=== PATIENT | female | born 1975 | race Hispanic/Latino ===

== ENCOUNTER 2019-04-01 17:49 | Emergency (ER) | payer SELFPAY ==
--- NOTE | 2019-04-01 19:20 | RAD REPORT ---
EXAM DESCRIPTION: RAD - Knee Right 3 View - 04/01/2019 7:14 pm CLINICAL HISTORY: PAIN Pain and swelling COMPARISON: No comparisons FINDINGS: Mild medial compartment space narrowing is present compatible with mild osteoarthritis. Mo derate suprapatellar joint effusion is present. An acute fracture is not demonstrated. IMPRESSION: Moderate joint effusion.
[2019-04-01] MEDS ORDERED: BUPIVACAINE 0.5% PF 10 ML VIAL ONE (20:48)
[2019-04-01] MEDS ORDERED: DEXAMETHASONE 10 MG/ML VIAL ONE (21:15)
[2019-04-01] MEDS ORDERED: FENTANYL CITR 100 MCG/2 ML ONE (21:16)
[2019-04-01] MEDS ORDERED: KETOROLAC 30 MG/ML INJ ONE (21:16)
[2019-04-01 21:17] LABS: Absolute Lymphocytes (CBC) 1.4 K/uL (0.7-4.9); Absolute Monocytes 1.1 K/uL (0.1-1.3); Absolute Neutrophil 10.5 K/uL (1.8-8.0); Basophils % 0.3 % (0-1.3); Eosinophils % 0.4 % (0-4.4); Monocytes % 8.5 % (3.3-12.3); RBC Red Blood Cell Count 4.88 M/uL (3.86-4.86)
[2019-04-01 21:40] LABS: BUN Blood Urea Nitrogen 6 mg/dL (7-18); Bicarbonate 23 mmol/L (21-32); Glucose Level 111 mg/dL (74-106); Potassium 3.5 mmol/L (3.5-5.1); Sodium Level 137 mmol/L (136-145)
[2019-04-01 23:30] LABS: Body Fluid Source SYNOVIAL
[2019-04-01 23:31] LABS: Appearance TURBID (CLEAR); Body Fluid WBC 29411 /mm^3; Color of fluid Pink (COLORLESS)
--- NOTE | 2019-04-02 00:35 | ER ---
Nurse's Notes [facility] Name: Sarai Thomas Age: 44 yrs Sex: Female : 1975 Arrival Date: 04/01/2019 Time: 18:04 Bed 2 Private MD: Diagnosis: Effusion, right knee;Pain in right knee Presentation: 04/01 18:04 Presenting complaint: Patient states: c/o right knee pain yesterday and today woke up sv with right knee swelling, denies injury or fall. Transition of care: patient was not received from another setting of care. Onset of symptoms was March 31, 2019. Initial Sepsis Screen: Does the patient meet any 2 criteria? No. Patient's initial sepsis screen is negative. Does the patient have a suspected source of infection? No. Patient's initial sepsis screen is negative. Care prior to arrival: None. 18:04 Method Of Arrival: Wheelchair sv 18:04 Acuity: MARISEL 2 sv 19:54 Risk Assessment: Do you want to hurt yourself or someone else? Patient reports no tl2 desire to harm self or others. Triage Assessment: 18:05 General: Appears in no apparent distress. uncomfortable, Behavior is cooperative, sv appropriate for age, anxious. Pain: Complains of pain in right knee. Neuro: Level of Consciousness is awake, alert, obeys commands, Oriented to person, place, time, situation. Respiratory: Respiratory effort is even, unlabored, Respiratory pattern is regular, symmetrical. Historical: - Allergies: 18:05 No Known Allergies; sv - PMHx: 18:05 None; sv - Immunization history:: Adult Immunizations up to date. - Social history:: Smoking status: Patient/guardian denies using tobacco. - Ebola Screening: : No symptoms or risks identified at this time. Screenin:50 Abuse screen: Denies threats or abuse. Nutritional screening: No deficits noted. tl2 Tuberculosis screening: No symptoms or risk factors identified. Fall Risk Gait- Impaired (20 pts.). Assessment: 19:50 General: Appears in no apparent distress. uncomfortable, Behavior is calm, cooperative, tl2 appropriate for age. Pain: Complains of pain in right knee Pain does not radiate. Pain currently is 9 out of 10 on a pain scale. Quality of pain is described as stinging. Neuro: Level of Consciousness is awake, alert, obeys commands, Oriented to person, place, time, situation. Cardiovascular: Denies chest pain. Respiratory: Airway is patent Respiratory effort is even, unlabored, Respiratory pattern is regular, symmetrical. GI: No signs and/or symptoms were reported involving the gastrointestinal system. Derm: Skin is pink, warm \T\ dry. Musculoskeletal: Circulation, motion, and sensation intact. Range of motion: limited in right knee Swelling present in right knee Denies injury to right knee. 22:00 Reassessment: Patient appears in no apparent distress at this time. Patient and/or tl2 family updated on plan of care and expected duration. Pain level reassessed. Patient is alert, oriented x 3, equal unlabored respirations, skin warm/dry/pink. Dr. Bucio at bedside to perform needle aspiration of knee joint. 22:21 Reassessment: 70 mL of synovial fluid removed from left knee, samples sent to lab. tl2 04/02 00:00 Reassessment: Patient appears in no apparent distress at this time. Patient and/or tl2 family updated on plan of care and expected duration. Pain level reassessed. Patient is alert, oriented x 3, equal unlabored respirations, skin warm/dry/pink. 01:02 Reassessment: Patient appears in no apparent distress at this time. Patient and/or tl2 family updated on plan of care and expected duration. Pain level reassessed. Patient is alert, oriented x 3, equal unlabored respirations, skin warm/dry/pink. pt verbalized understanding of discharge instructions, need for follow up and prescription usage. Vital Signs: 04/01 18:05 BP 164 / 98; Pulse 101; Resp 20; Temp 97.2; Pulse Ox 99% ; Weight 77.11 kg; Height 5 sv ft. 7 in. (170.18 cm); Pain 10/10; 19:50 BP 153 / 88; Pulse 101; Resp 20; Pulse Ox 99% on R/A; Pain 10/10; tl2 21:15 BP 136 / 92; Pulse 108; Resp 18; Pulse Ox 96% on R/A; tl2 04/02 00:30 BP 136 / 84; Pulse 111; Resp 18; Temp 98.1(O); Pulse Ox 97% on R/A; tl2 04/01 18:05 Body Mass Index 26.63 (77.11 kg, 170.18 cm) ED Course: 04/01 18:04 Patient arrived in ED. sv 18:05 Triage completed. sv 18:05 Arm band placed on. sv 19:14 Knee Right 3 View XRAY In Process Unspecified. EDMS 19:49 Jg Bucio MD is Attending Physician. wa 19:50 Patient has correct armband on for positive identification. Bed in low position. Call tl2 light in reach. Side rails up X 1. Adult w/ patient. 20:55 Inserted saline lock: 22 gauge in right antecubital area, using aseptic technique. tl2 Blood collected. 22:18 Bibiana Bucio, TALIB is Primary Nurse. tl2 23:00 BMP Sent. ea 23:00 CBC with Diff Sent. ea 04/02 00:10 Quique Slaughter PA is PHCP. cp 00:33 Ousmane Pérez MD is Referral Physician. cp 01:02 No provider procedures requiring assistance completed. IV discontinued, intact, tl2 bleeding controlled, No redness/swelling at site. Pressure dressing applied. Administered Medications: 04/01 21:10 Drug: TORadol 30 mg Route: IVP; Site: right antecubital; tl2 22:00 Follow up: Response: No adverse reaction; Pain is decreased tl2 21:10 Drug: Decadron - Dexamethasone 10 mg Route: IVP; Site: right antecubital; tl2 22:00 Follow up: Response: No adverse reaction; Pain is decreased tl2 21:16 Drug: fentaNYL (PF) 50 mcg Route: IVP; Site: right antecubital; tl2 22:00 Follow up: Response: No adverse reaction; Pain is decreased tl2 04/02 00:55 Drug: [place] (7.5 mg-325 mg) 1 tabs Route: PO; tl2 01:00 Follow up: Response: No adverse reaction; Medication administered at discharge. tl2 Outcome: 00:34 Discharge ordered by . cp 01:02 Discharged to home via wheelchair, with crutches, with family. tl2 01:02 Condition: stable 01:02 Discharge instructions given to patient, Instructed on discharge instructions, follow up and referral plans. medication usage, Demonstrated understanding of instructions, follow-up care, medications, Prescriptions given X 2. 01:03 Patient left the ED. tl2 Signatures: Dispatcher [employer] Chitra Morales RN RN sv Quique Slaughter PA PA cp Knox, Taylor, RN RN tl2 Natalie Alcantara RN RN ea Appiah, William, MD MD wa Corrections: (The following items were deleted from the chart) 04/01 18:06 18:04 Acuity: MARISEL 3 sv sv
--- NOTE | 2019-04-02 00:35 | EDPHYS ---
Physician Documentation [facility] Name: Sarai Thomas Age: 44 yrs Sex: Female : 1975 Arrival Date: 04/01/2019 Time: 18:04 Bed 2 Private MD: ED Physician Jg Bucio HPI: 04/01 22:16 This 44 yrs old Female presents to ER via Wheelchair with complaints of Knee wa Pain. 22:16 The patient presents with pain, that is acute, swelling, tenderness. The complaints wa affect the right knee. Context: The problem was sustained at home, resulted from an unknown cause, the patient can partially bear weight, the patient is able to ambulate, with moderate difficulty, Problem is a result from a previous injury: many years ago had R knee injury. retained fluid that was drained. that was 20 yrs ago. this pain present x 2 days. denies knew traumatic event. Onset: The symptoms/episode began/occurred 2 day(s) ago. Modifying factors: The symptoms are alleviated by nothing. the symptoms are aggravated by movement, weight bearing, bending knee. Associated signs and symptoms: Pertinent positives: swelling, of the right knee. Treatment prior to arrival includes: no previous treatment. Severity of symptoms: At their worst the symptoms were moderate, in the emergency department the symptoms are actually worse, moderately. The patient has experienced a previous episode, approximately 20 years ago. The patient has not recently seen a physician. as noted above. denies fever, chills or redness. Historical: - Allergies: 18:05 No Known Allergies; sv - PMHx: 18:05 None; sv - Immunization history:: Adult Immunizations up to date. - Social history:: Smoking status: Patient/guardian denies using tobacco. - Ebola Screening: : No symptoms or risks identified at this time. ROS: 22:19 Constitutional: Negative for fever, chills, and weight loss, Eyes: Negative for injury, wa pain, redness, and discharge, ENT: Negative for injury, pain, and discharge, Neck: Negative for injury, pain, and swelling, Cardiovascular: Negative for chest pain, palpitations, and edema, Respiratory: Negative for shortness of breath, cough, wheezing, and pleuritic chest pain, Abdomen/GI: Negative for abdominal pain, nausea, vomiting, diarrhea, and constipation, Back: Negative for injury and pain, : Negative for injury, bleeding, discharge, and swelling, Skin: Negative for injury, rash, and discoloration, Neuro: Negative for headache, weakness, numbness, tingling, and seizure, Psych: Negative for depression, anxiety, suicide ideation, homicidal ideation, and hallucinations. 22:19 MS/extremity: Positive for pain, swelling, tenderness, of the right knee. Exam: 22:19 Constitutional: This is a well developed, well nourished patient who is awake, alert, wa and in no acute distress. Head/Face: Normocephalic, atraumatic. Eyes: Pupils equal round and reactive to light, extra-ocular motions intact. Lids and lashes normal. Conjunctiva and sclera are non-icteric and not injected. Cornea within normal limits. Periorbital areas with no swelling, redness, or edema. ENT: Nares patent. No nasal discharge, no septal abnormalities noted. Tympanic membranes are normal and external auditory canals are clear. Oropharynx with no redness, swelling, or masses, exudates, or evidence of obstruction, uvula midline. Mucous membranes moist. Neck: Trachea midline, no thyromegaly or masses palpated, and no cervical lymphadenopathy. Supple, full range of motion without nuchal rigidity, or vertebral point tenderness. No Meningismus. Chest/axilla: Normal chest wall appearance and motion. Nontender with no deformity. No lesions are appreciated. Cardiovascular: Regular rate and rhythm with a normal S1 and S2. No gallops, murmurs, or rubs. Normal PMI, no JVD. No pulse deficits. Respiratory: Lungs have equal breath sounds bilaterally, clear to auscultation and percussion. No rales, rhonchi or wheezes noted. No increased work of breathing, no retractions or nasal flaring. Abdomen/GI: Soft, non-tender, with normal bowel sounds. No distension or tympany. No guarding or rebound. No evidence of tenderness throughout. Back: No spinal tenderness. No costovertebral tenderness. Full range of motion. Skin: Warm, dry with normal turgor. Normal color with no rashes, no lesions, and no evidence of cellulitis. Neuro: Awake and alert, GCS 15, oriented to person, place, time, and situation. Cranial nerves II-XII grossly intact. Motor strength 5/5 in all extremities. Sensory grossly intact. Cerebellar exam normal. Normal gait. Psych: Awake, alert, with orientation to person, place and time. Behavior, mood, and affect are within normal limits. 22:19 Musculoskeletal/extremity: Extremities: grossly normal except: noted in the right knee: pain, swelling, tenderness, swelling, tenderness. Vital Signs: 18:05 BP 164 / 98; Pulse 101; Resp 20; Temp 97.2; Pulse Ox 99% ; Weight 77.11 kg; Height 5 sv ft. 7 in. (170.18 cm); Pain 10/10; 19:50 BP 153 / 88; Pulse 101; Resp 20; Pulse Ox 99% on R/A; Pain 10/10; tl2 21:15 BP 136 / 92; Pulse 108; Resp 18; Pulse Ox 96% on R/A; tl2 04/02 00:30 BP 136 / 84; Pulse 111; Resp 18; Temp 98.1(O); Pulse Ox 97% on R/A; tl2 04/01 18:05 Body Mass Index 26.63 (77.11 kg, 170.18 cm) sv Procedures: 04/01 22:23 Joint Treatment: Aspiration of right knee using 18 gauge needle, bupivacaine. Removed wa 70 ml's of cloudy fluid, selina fluid, Specimen sent to lab. Dressed with 4x4s, Patient tolerated well. MDM: 19:49 Patient medically screened. wa 22:20 Differential diagnosis: r/o acute trauma. consider effusion. r/o septic joint. Data wa reviewed: vital signs, nurses notes. 22:21 Test interpretation: by ED physician or midlevel provider: R knee: mild osteoarthritis. wa moderate suprapatellar joint effusion. 22:22 Test interpretation: by ED physician or midlevel provider: cbc consistent for wa leukocytosis. 22:22 Response to treatment: the patient's symptoms have mildly improved after treatment. ED wa course: IV placed. Decadron, Toradol given. R knee arthrocentesis performed. pt tolerated procedure well. 04/02 00:30 Physician consultation: Ousmane Pérez MD was called at 00:25, was contacted at 00:25, regarding patient's condition, and will see patient in office, will see patient in clinic within the week. 04/01 20:34 Order name: CBC with Diff wa 05/13 20:34 Order name: BMP in 04/01 20:35 Order name: CBC with Automated Diff; Complete Time: 21:36 EDMS 04/01 20:35 Order name: Basic Metabolic Panel; Complete Time: 22:21 EDMS 04/01 21:42 Order name: Fluid Cell Count,Body; Complete Time: 00:10 in 04/01 21:42 Order name: Body Fluid Culture in 04/01 18:04 Order name: Knee Right 3 View XRAY; Complete Time: 20:02 sv 04/01 20:23 Order name: IV Start; Complete Time: 20:43 in 04/02 00:24 Order name: Misc. Order: gram stain; Complete Time: 00:37 cp 04/02 00:41 Order name: Body Fluid Crystals; Complete Time: 19:40 EDMS 04/02 00:30 Order name: Crutches; Complete Time: 00:37 cp Administered Medications: 04/01 21:10 Drug: TORadol 30 mg Route: IVP; Site: right antecubital; tl2 22:00 Follow up: Response: No adverse reaction; Pain is decreased tl2 21:10 Drug: Decadron - Dexamethasone 10 mg Route: IVP; Site: right antecubital; tl2 22:00 Follow up: Response: No adverse reaction; Pain is decreased tl2 21:16 Drug: fentaNYL (PF) 50 mcg Route: IVP; Site: right antecubital; tl2 22:00 Follow up: Response: No adverse reaction; Pain is decreased tl2 04/02 00:55 Drug: [place] (7.5 mg-325 mg) 1 tabs Route: PO; tl2 01:00 Follow up: Response: No adverse reaction; Medication administered at discharge. tl2 Disposition: 14:11 Co-signature as Attending Physician, Jg Bucio MD I agree with the assessment and in plan of care. Disposition: 04/02/19 00:34 Discharged to Home. Impression: Effusion, right knee, Pain in right knee. - Condition is Stable. - Discharge Instructions: Knee Effusion, Knee Pain. - Prescriptions for Ultracet 37.5- 325 mg Oral Tablet - take 1 tablet by ORAL route every 8 hours As needed - for up to 5 days; do not exceed 8 tablets per day.; 15 tablet. Diclofenac Sodium 75 mg Oral Tablet, Delayed Release (E.C.) - take 1 tablet by ORAL route 2 times per day; 20 tablet. - Medication Reconciliation Form, Thank You Letter, Antibiotic Education, Prescription Opioid Use form. - Follow up: Ousmane Pérez MD; When: within 1 week; Reason: right knee pain and effusion. - Problem is new. - Symptoms have improved. Signatures: Dispatcher [employer] EDChitra Carver RN RN Quique Slaughter PA PA cp Bibiana Bucio RN RN tl2 FortunatoJg MD MD in Corrections: (The following items were deleted from the chart) 01:03 00:34 04/02/2019 00:34 Discharged to Home. Impression: Effusion, right knee; Pain in tl2 right knee. Condition is Stable. Forms are Medication Reconciliation Form, Thank You Letter, Antibiotic Education, Prescription Opioid Use. Follow up: Dr. Ousmane Pérez; When: within 1 week; Reason: right knee pain and effusion. Problem is new. Symptoms have improved. cp
[2019-04-02] MEDS ORDERED: HYDROCODONE/APAP 7.5/325 MG TAB ONE (00:59)
== END 2019-04-02 01:03 | disposition home or self-care (01) ==
LOC: ER 17:49
PROC: 0S9C3ZZ Drainage of Right Knee Joint, Percutaneous Approach (ICD-10-PCS; principal; 2019-04-01)
DX: M25.461 Effusion, right knee (principal); M25.561 Pain in right knee
CPT/HCPCS: 36415; 80048; 85025; 87070; 89050; 89060; 96374; 96375; 99284; J1100; J3010

== ENCOUNTER 2019-04-03 17:51 | Emergency (ER) | payer SELFPAY ==
--- NOTE | 2019-04-03 18:43 | ER ---
Nurse's Notes [facility] Name: Sarai Thomas Age: 44 yrs Sex: Female : 1975 Arrival Date: 04/03/2019 Time: 17:54 Bed 7 Private MD: Diagnosis: Pain in right knee;Effusion, right knee Presentation: 04/03 18:02 Presenting complaint: Child states: she was here on Monday and she needs more pain tw2 medicine, she cant get a follow up appt until April and she doesn't know if more fluid is in the knee or not. Transition of care: patient was not received from another setting of care. Onset of symptoms was April 03, 2019. Risk Assessment: Do you want to hurt yourself or someone else? Patient reports no desire to harm self or others. Initial Sepsis Screen: Does the patient meet any 2 criteria? No. Patient's initial sepsis screen is negative. Does the patient have a suspected source of infection? No. Patient's initial sepsis screen is negative. Care prior to arrival: None. 18:02 Method Of Arrival: Wheelchair tw2 18:02 Acuity: MARISEL 4 tw2 Triage Assessment: 18:03 General: Appears in no apparent distress. Behavior is calm, cooperative. Pain: tw2 Complains of pain in right knee. Neuro: Level of Consciousness is awake, alert, obeys commands, Oriented to person, place, time, situation. Cardiovascular: Patient's skin is warm and dry. Respiratory: Airway is patent Respiratory effort is even, unlabored, Respiratory pattern is regular, symmetrical. GI: No signs and/or symptoms were reported involving the gastrointestinal system. : No signs and/or symptoms were reported regarding the genitourinary system. Derm: No signs and/or symptoms reported regarding the dermatologic system. Musculoskeletal: Reports pain in right knee. 18:04 Pain:. EENT: No signs and/or symptoms were reported regarding the EENT system. tw2 Musculoskeletal: Swelling present in right knee. 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 tw2 Historical: - Allergies: 18:08 No Known Allergies; tw2 - Home Meds: 18:08 None [Active]; tw2 - PMHx: 18:08 None; tw2 - PSHx: 18:08 None; tw2 - Immunization history:: Adult Immunizations. - Social history:: Smoking status: . - Ebola Screening: : Patient denies travel to an Ebola-affected area in the 21 days before illness onset. Screenin:57 Abuse screen: Denies threats or abuse. Nutritional screening: No deficits noted. tw2 Tuberculosis screening: No symptoms or risk factors identified. Fall Risk None identified. Assessment: 18:06 Reassessment: see triage assessment. tw2 Vital Signs: 18:05 BP 150 / 90; Pulse 94; Resp 17; Temp 97.8(TE); Pulse Ox 99% on R/A; Weight 77.11 kg tw2 (R); Height 5 ft. 7 in. (170.18 cm); Pain 9/10; 18:05 Body Mass Index 26.63 (77.11 kg, 170.18 cm) tw2 ED Course: 17:54 Patient arrived in ED. mr 17:57 Joelle Kirkland RN is Primary Nurse. tw2 17:58 Leonardo Cortez NP is PHCP. pm1 17:58 Cedric Marquez MD is Attending Physician. pm1 17:58 Arm band placed on. tw2 17:58 Bed in low position. Call light in reach. Adult w/ patient. Pulse ox on. NIBP on. tw2 18:03 Triage completed. tw2 18:40 Matthieu wrap to right knee CMS intact post acewrap application. sg 18:50 No provider procedures requiring assistance completed. Patient did not have IV access sg during this emergency room visit. Administered Medications: 18:35 Drug: [place] 10 mg-325 mg 1 tabs Route: PO; tw2 18:50 Follow up: Response: No adverse reaction sg Outcome: 18:43 Discharge ordered by . pm1 18:50 Discharged to home ambulatory, via wheelchair, with family, with friend. sg 18:50 Condition: good 18:50 Discharge instructions given to patient, family, Instructed on discharge instructions, follow up and referral plans. no drinking with medication, no driving heavy equipment, medication usage, safety practices, crutch walking, Demonstrated understanding of instructions, follow-up care, medications, crutch walking, Prescriptions given X 2. 18:51 Patient left the ED. sg Signatures: Job Boyle RN RN Bri Rosenberg mr Leonardo Cortez NP DYNAMOMETER MECHANIC pm1 Kirkland, Joelle, RN RN tw2 Corrections: (The following items were deleted from the chart) 18:05 18:03 Musculoskeletal: Reports pain in left knee tw2 tw2
--- NOTE | 2019-04-03 18:43 | EDPHYS ---
Physician Documentation [facility] Name: Sarai Thomas Age: 44 yrs Sex: Female : 1975 Arrival Date: 04/03/2019 Time: 17:54 Bed 7 Private MD: ED Physician Cedric Marquez HPI: 04/03 18:37 This 44 yrs old Female presents to ER via Wheelchair with complaints of Right pm1 Knee Pain. 18:37 The patient presents with pain, that is acute, swelling. The complaints affect the pm1 right knee. Context: The problem was sustained at home, resulted from an unknown cause, the patient is able to ambulate, Problem is a result from a previous injury: Many years ago. Onset: The symptoms/episode began/occurred 2 day(s) ago. Modifying factors: The symptoms are alleviated by nothing. medications are not helping for pain. the symptoms are aggravated by weight bearing, Patient has not been using the matthieu wrap as directed. Associated signs and symptoms: Pertinent negatives calf tenderness, fever, nausea, numbness, tingling, vomiting, warmth. Treatment prior to arrival includes: prescription medications, Ultram or Ultracet, NSAID, Crutches and matthieu wrap. Severity of symptoms: in the emergency department the symptoms are unchanged. The patient has experienced a previous episode, many years ago. The patient has been recently seen at the [facility] Emergency Department, for similar complaints labs were performed, X-rays were performed, was given a prescription for pain medications, Dx with knee effusion two days ago and had knee drained. Cultures returned negative and patient has appointment with orthopedics on April 24. Patient wants enough medications as a prescription that will last her until April 24. 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 tw2 Historical: - Allergies: 18:08 No Known Allergies; tw2 - Home Meds: 18:08 None [Active]; tw2 - PMHx: 18:08 None; tw2 - PSHx: 18:08 None; tw2 - Immunization history:: Adult Immunizations. - Social history:: Smoking status: . - Ebola Screening: : Patient denies travel to an Ebola-affected area in the 21 days before illness onset. ROS: 18:37 Constitutional: Negative for fever, chills, and weight loss, Eyes: Negative for injury, pm1 pain, redness, and discharge, ENT: Negative for injury, pain, and discharge, Neck: Negative for injury, pain, and swelling, Cardiovascular: Negative for chest pain, palpitations, and edema, Respiratory: Negative for shortness of breath, cough, wheezing, and pleuritic chest pain, Abdomen/GI: Negative for abdominal pain, nausea, vomiting, diarrhea, and constipation, Back: Negative for injury and pain, : Negative for injury, bleeding, discharge, and swelling. 18:37 Skin: Negative for injury, rash, and discoloration, Neuro: Negative for headache, weakness, numbness, tingling, and seizure. 18:37 MS/extremity: Positive for pain, swelling, of the right knee, Negative for decreased range of motion, deformity, erythema. Exam: 18:37 Constitutional: This is a well developed, well nourished patient who is awake, alert, pm1 and in no acute distress. Head/Face: Normocephalic, atraumatic. Neck: Trachea midline, no thyromegaly or masses palpated, and no cervical lymphadenopathy. Supple, full range of motion without nuchal rigidity, or vertebral point tenderness. No Meningismus. Chest/axilla: Normal chest wall appearance and motion. Nontender with no deformity. No lesions are appreciated. Cardiovascular: Regular rate and rhythm with a normal S1 and S2. No gallops, murmurs, or rubs. Normal PMI, no JVD. No pulse deficits. Respiratory: Lungs have equal breath sounds bilaterally, clear to auscultation and percussion. No rales, rhonchi or wheezes noted. No increased work of breathing, no retractions or nasal flaring. Abdomen/GI: Soft, non-tender, with normal bowel sounds. No distension or tympany. No guarding or rebound. No evidence of tenderness throughout. Back: No spinal tenderness. No costovertebral tenderness. Full range of motion. Skin: Warm, dry with normal turgor. Normal color with no rashes, no lesions, and no evidence of cellulitis. 18:37 Musculoskeletal/extremity: Extremities: grossly normal except: noted in the right knee: swelling, tenderness, There is no evidence of decreased ROM, deformity, ecchymosis, erythema, Circulation is intact in all extremities. Sensation intact. DVT Exam: No signs of deep vein thrombosis. Calves: are non-tender, have equal circumference. Vital Signs: 18:05 BP 150 / 90; Pulse 94; Resp 17; Temp 97.8(TE); Pulse Ox 99% on R/A; Weight 77.11 kg tw2 (R); Height 5 ft. 7 in. (170.18 cm); Pain 9/10; 18:05 Body Mass Index 26.63 (77.11 kg, 170.18 cm) tw2 MDM: 18:09 Patient medically screened. pm1 18:41 Data reviewed: vital signs. Data interpreted: athletic monitor:. Counseling: I had a pm1 detailed discussion with the patient and/or guardian regarding: the historical points, exam findings, and any diagnostic results supporting the discharge/admit diagnosis, the need for outpatient follow up, for definitive care, a orthopedic surgeon. 04/03 18:30 Order name: Matthieu wrap-joint; Complete Time: 18:37 pm1 Administered Medications: 18:35 Drug: [place] 10 mg-325 mg 1 tabs Route: PO; tw2 18:50 Follow up: Response: No adverse reaction Disposition: 18:52 Co-signature as Attending Physician, Cedric Marquez MD. rn Disposition: 04/03/19 18:43 Discharged to Home. Impression: Effusion, right knee, Pain in right knee. - Condition is Stable. - Discharge Instructions: Crutch Use, Knee Effusion, Knee Pain. - Prescriptions for Tylenol- Codeine #3 300-30 mg Oral Tablet - take 2 tablets by ORAL route every 6 hours As needed; 20 tablet. Diclofenac Sodium 75 mg Oral Tablet Sustained Release - take 1 tablet by ORAL route 2 times per day; 30 tablet. - Medication Reconciliation Form, Thank You Letter, Antibiotic Education, Prescription Opioid Use form. - Follow up: Emergency Department; When: As needed; Reason: Worsening of condition. Follow up: Private Physician; When: 2 - 3 days; Reason: Recheck today's complaints, Continuance of care, Re-evaluation by your physician. - Problem is new. - Symptoms have improved. Signatures: Job Boyle RN RN Cedric Marquez MD MD rn Marinas, Patrick, [employer]ING MANAGER pm1 Joelle Kirkland RN RN tw2 Corrections: (The following items were deleted from the chart) 18:51 18:43 04/03/2019 18:43 Discharged to Home. Impression: Effusion, right kneePain in sg right knee. Condition is Stable. Forms are Medication Reconciliation Form, Thank You Letter, Antibiotic Education, Prescription Opioid Use. Follow up: Emergency Department; When: As needed; Reason: Worsening of condition. Follow up: Private Physician; When: 2 - 3 days; Reason: Recheck today's complaints, Continuance of care, Re-evaluation by your physician. Problem is new. Symptoms have improved. pm1
[2019-04-03] MEDS ORDERED: HYDROCODONE/APAP 10/325 TAB ONE (18:46)
== END 2019-04-03 18:51 | disposition home or self-care (01) ==
LOC: ER 17:51
DX: M25.561 Pain in right knee (principal); M25.461 Effusion, right knee
CPT/HCPCS: 99284

== ENCOUNTER 2019-04-15 10:14 | Emergency (ER) | payer SELFPAY ==
--- NOTE | 2019-04-15 11:14 | EDPHYS ---
Physician Documentation [facility] Name: Sarai Thomas Age: 44 yrs Sex: Female : 1975 Arrival Date: 04/15/2019 Time: 10:17 Bed 10 Private MD: ED Physician Quique Estes HPI: 04/15 10:54 This 44 yrs old Female presents to ER via Ambulatory with complaints of Knee willem Pain. 10:54 The patient presents with decreased range of motion, pain, swelling, tenderness. The willem complaints affect the right leg and left leg. Context: The problem was sustained at an unknown site. Onset: The symptoms/episode began/occurred 1 week(s) ago. Modifying factors: The symptoms are alleviated by nothing. the symptoms are aggravated by movement, weight bearing, bending knee. Associated signs and symptoms: The patient has no apparent associated signs or symptoms. Severity of symptoms: At their worst the symptoms were mild, moderate, in the emergency department the symptoms are unchanged. The patient has not experienced similar symptoms in the past. 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 - Social history:: Smoking status: Patient/guardian denies using tobacco. - Ebola Screening: : No symptoms or risks identified at this time. - Family history:: not pertinent. ROS: 10:54 Constitutional: Negative for fever, chills, and weight loss, Eyes: Negative for injury, willem pain, redness, and discharge, ENT: Negative for injury, pain, and discharge, Neck: Negative for injury, pain, and swelling, Cardiovascular: Negative for chest pain, palpitations, and edema, Respiratory: Negative for shortness of breath, cough, wheezing, and pleuritic chest pain, Abdomen/GI: Negative for abdominal pain, nausea, vomiting, diarrhea, and constipation, Back: Negative for injury and pain, : Negative for injury, bleeding, discharge, and swelling, Skin: Negative for injury, rash, and discoloration, Neuro: Negative for headache, weakness, numbness, tingling, and seizure, Psych: Negative for depression, anxiety, suicide ideation, homicidal ideation, and hallucinations, Allergy/Immunology: Negative for hives, rash, and allergies, Endocrine: Negative for neck swelling, polydipsia, polyuria, polyphagia, and marked weight changes, Hematologic/Lymphatic: Negative for swollen nodes, abnormal bleeding, and unusual bruising. 10:54 MS/extremity: Positive for decreased range of motion, pain, swelling, tenderness, of the right leg and left leg. Exam: 10:55 Constitutional: This is a well developed, well nourished patient who is awake, alert, willem and in no acute distress. Head/Face: Normocephalic, atraumatic. Eyes: Pupils equal round and reactive to light, extra-ocular motions intact. Lids and lashes normal. Conjunctiva and sclera are non-icteric and not injected. Cornea within normal limits. Periorbital areas with no swelling, redness, or edema. ENT: Nares patent. No nasal discharge, no septal abnormalities noted. Tympanic membranes are normal and external auditory canals are clear. Oropharynx with no redness, swelling, or masses, exudates, or evidence of obstruction, uvula midline. Mucous membranes moist. Neck: Trachea midline, no thyromegaly or masses palpated, and no cervical lymphadenopathy. Supple, full range of motion without nuchal rigidity, or vertebral point tenderness. No Meningismus. Chest/axilla: Normal chest wall appearance and motion. Nontender with no deformity. No lesions are appreciated. Cardiovascular: Regular rate and rhythm with a normal S1 and S2. No gallops, murmurs, or rubs. Normal PMI, no JVD. No pulse deficits. Respiratory: Lungs have equal breath sounds bilaterally, clear to auscultation and percussion. No rales, rhonchi or wheezes noted. No increased work of breathing, no retractions or nasal flaring. Abdomen/GI: Soft, non-tender, with normal bowel sounds. No distension or tympany. No guarding or rebound. No evidence of tenderness throughout. Back: No spinal tenderness. No costovertebral tenderness. Full range of motion. Skin: Warm, dry with normal turgor. Normal color with no rashes, no lesions, and no evidence of cellulitis. Neuro: Awake and alert, GCS 15, oriented to person, place, time, and situation. Cranial nerves II-XII grossly intact. Motor strength 5/5 in all extremities. Sensory grossly intact. Cerebellar exam normal. Normal gait. Psych: Awake, alert, with orientation to person, place and time. Behavior, mood, and affect are within normal limits. 10:55 Musculoskeletal/extremity: ROM: full passive range of motion, limited passive range of motion, in the right leg and left leg, Pulses: noted to be 4+ in the bilateral radial, brachial, femoral, popliteal, posterior tibial and and dorsalis pedis arteries., Sensation intact. Compartment Syndrome exam of affected extremity: is normal. Weight bearing: can bear weight with assistance only, DVT Exam: negative Homans' sign noted on exam, no appreciated bluish discoloration, no erythema, no increased warmth, pain, swelling, tenderness. Vital Signs: 10:36 BP 146 / 94; Pulse 77; Resp 16; Temp 97; Pulse Ox 99% ; Weight 77.11 kg; Height 5 ft. 7 sv in. (170.18 cm); Pain 8/10; 10:36 Body Mass Index 26.63 (77.11 kg, 170.18 cm) sv MDM: 10:38 Patient medically screened. [facility] 10:57 Data reviewed: vital signs, nurses notes, lab test result(s), radiologic studies, plain willem films. Administered Medications: 11:24 Not Given (Patient Refused): NS 0.9% 1000 ml IV at 1 bolus Per protocol; 1000 mL bolus ss 11:24 Not Given (Patient Refused): TORadol 30 mg IVP once ss 11:24 Not Given (Patient Refused): morphine 4 mg IVP once ss 11:24 Not Given (Patient Refused): Zofran 4 mg IVP once; over 2 minutes ss 11:24 Not Given (Patient Refused): [place] 10 mg-325 mg 1 tabs PO once ss 11:24 Not Given (Patient Refused): Decadron 10 mg IM once ss 11:26 Not Given (Patient Refused): TORadol 60 mg IM once ss Disposition: 04/15/19 11:14 Discharged to Home. Impression: Pain in left knee, Pain in right knee, Effusion, left knee, Effusion, right knee. - Condition is Stable. - Discharge Instructions: Joint Pain, Arthritis, Knee Effusion, Knee Pain, Knee Effusion, [id number], Arthritis, [id number]. - Prescriptions for Ibuprofen 600 mg Oral Tablet - take 1 tablet by ORAL route every 8 hours As needed take with food; 30 tablet. Tylenol- Codeine #3 300-30 mg Oral Tablet - take 2 tablet by ORAL route every 6 hours As needed; 30 tablet. Medrol (Vargas) 4 mg Oral Tablets, Dose Pack - take 1 tablet by ORAL route as directed - follow package instructions; 1 packet. - Medication Reconciliation Form, Thank You Letter, Antibiotic Education, Prescription Opioid Use form. - Follow up: Private Physician; When: 2 - 3 days; Reason: Recheck today's complaints, Continuance of care, Re-evaluation by your physician. Follow up: Job Shen MD; When: 2 - 3 days; Reason: Recheck today's complaints, Re-evaluation by your physician. - Problem is new. - Symptoms have improved. Signatures: Dispatcher [employer] Chitra Morales RN RN sv Anderson, Corey, MD MD cha Smirch, Shelby, RN RN ss Corrections: (The following items were deleted from the chart) 11:15 11:14 04/15/2019 11:14 Discharged to Home. Impression: Pain in left knee; Pain in right willem knee; Effusion, left knee; Effusion, right knee. Condition is Stable. Forms are Medication Reconciliation Form, Thank You Letter, Antibiotic Education, Prescription Opioid Use. Follow up: Private Physician; When: 2 - 3 days; Reason: Recheck today's complaints, Continuance of care, Re-evaluation by your physician. Problem is new. Symptoms have improved. [facility] 11:24 11:13 Crutches ordered. [facility] 11:26 11:15 04/15/2019 11:14 Discharged to Home. Impression: Pain in left knee; Pain in right ss knee; Effusion, left knee; Effusion, right knee. Condition is Stable. Forms are Medication Reconciliation Form, Thank You Letter, Antibiotic Education, Prescription Opioid Use. Follow up: Private Physician; When: 2 - 3 days; Reason: Recheck today's complaints, Continuance of care, Re-evaluation by your physician. Follow up: Job Shen; When: 2 - 3 days; Reason: Recheck today's complaints, Re-evaluation by your physician. Problem is new. Symptoms have improved. [facility]
--- NOTE | 2019-04-15 11:14 | ER ---
Nurse's Notes [facility] Name: Sarai Thomas Age: 44 yrs Sex: Female : 1975 Arrival Date: 04/15/2019 Time: 10:17 Bed 10 Private MD: Diagnosis: Pain in left knee;Pain in right knee;Effusion, left knee;Effusion, right knee Presentation: 04/15 10:34 Presenting complaint: Patient states: bilateral knee pain, seen here and prescribed sv Tylenol #3 and is out of them and would like some more. Transition of care: patient was not received from another setting of care. Onset of symptoms was April 15, 2019. Initial Sepsis Screen: Does the patient meet any 2 criteria? No. Patient's initial sepsis screen is negative. Does the patient have a suspected source of infection? No. Patient's initial sepsis screen is negative. Care prior to arrival: None. 10:34 Method Of Arrival: Ambulatory sv 10:34 Acuity: MARISEL 5 sv 11:26 Risk Assessment: Do you want to hurt yourself or someone else? Patient reports no ss desire to harm self or others. Triage Assessment: 10:34 General: Appears in no apparent distress. uncomfortable, well developed, Behavior is sv calm, cooperative, appropriate for age. Pain: Complains of pain in right knee and left knee Pain currently is 8 out of 10 on a pain scale. Neuro: Level of Consciousness is awake, alert, obeys commands, Oriented to person, place, time, situation, Gait is steady, with her crutches. Respiratory: Airway is patent Respiratory effort is even, unlabored, Respiratory pattern is regular, symmetrical. Derm: Skin is pink, warm \T\ dry. 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 - Social history:: Smoking status: Patient/guardian denies using tobacco. - Ebola Screening: : No symptoms or risks identified at this time. - Family history:: not pertinent. Screenin:46 Abuse screen: Denies threats or abuse. Denies injuries from another. Nutritional sv screening: No deficits noted. Tuberculosis screening: No symptoms or risk factors identified. Fall Risk None identified. Assessment: 10:50 General: Appears in no apparent distress. comfortable, Behavior is calm, cooperative. ss Pain: Complains of pain in right knee and left knee Pain currently is 8 out of 10 on a pain scale. Neuro: Level of Consciousness is awake, alert, obeys commands, Oriented to person, place, time, situation. Cardiovascular: Pulses are palpable in right posterior tibial artery and left posterior tibial artery. Respiratory: Airway is patent Respiratory effort is even, unlabored, Respiratory pattern is regular, symmetrical. EENT: Oral mucosa is moist. Throat is clear. Derm: Skin is intact, is healthy with good turgor, Skin is pink, warm \T\ dry. normal. Musculoskeletal: Circulation, motion, and sensation intact. Range of motion: intact in all extremities, Swelling absent. 11:15 Reassessment: While explaining to patient that Dr. Estes ordered blood work and an ss XRAY of L knee. Pt stated that she did not want blood work or additional XRAYs because she already has an appointment scheduled for April 24, and just came to the ER today for additional pain medication. Pt states that her L knee was bothering her because she has been compensating due to her R knee pain. Dr. Estes notified. 11:24 Reassessment: Prior to discharge, Dr. Estes order additional medications to help ss with pain. Pt refused and states that she would only like the prescriptions to take home at this time to get her through to her doctor's appointment. Vital Signs: 10:36 BP 146 / 94; Pulse 77; Resp 16; Temp 97; Pulse Ox 99% ; Weight 77.11 kg; Height 5 ft. 7 sv in. (170.18 cm); Pain 8/10; 10:36 Body Mass Index 26.63 (77.11 kg, 170.18 cm) sv ED Course: 10:17 Patient arrived in ED. dl4 10:36 Triage completed. sv 10:36 Arm band placed on. sv 10:38 Quique Estes MD is Attending Physician. willem 10:46 Patient has correct armband on for positive identification. Bed in low position. Door sv closed. 11:14 Job Shen MD is Referral Physician. willem 11:15 Yaquelin Del Castillo RN is Primary Nurse. ss 11:17 No provider procedures requiring assistance completed. Patient did not have IV access ss during this emergency room visit. Administered Medications: 11:24 Not Given (Patient Refused): NS 0.9% 1000 ml IV at 1 bolus Per protocol; 1000 mL bolus ss 11:24 Not Given (Patient Refused): TORadol 30 mg IVP once ss 11:24 Not Given (Patient Refused): morphine 4 mg IVP once ss 11:24 Not Given (Patient Refused): Zofran 4 mg IVP once; over 2 minutes ss 11:24 Not Given (Patient Refused): [place] 10 mg-325 mg 1 tabs PO once ss 11:24 Not Given (Patient Refused): Decadron 10 mg IM once ss 11:26 Not Given (Patient Refused): TORadol 60 mg IM once ss Outcome: 11:14 Discharge ordered by . willem 11:24 Discharged to home ambulatory, with crutches, with significant other. ss 11:24 Condition: good 11:24 Discharge instructions given to patient, family, Instructed on discharge instructions, follow up and referral plans. medication usage, Demonstrated understanding of instructions, follow-up care, medications, Prescriptions given X 3. 11:26 Patient left the ED. ss Signatures: Chitra Sullivan, RN RN Quique Robert MD MD cha Smirch, Shelby, RN RN Enmanuel Zarco dl4
== END 2019-04-15 11:26 | disposition home or self-care (01) ==
LOC: ER 10:14
DX: M25.462 Effusion, left knee (principal); M25.561 Pain in right knee; M25.461 Effusion, right knee
CPT/HCPCS: 99282